=== PATIENT | female | born 1995 | race Caucasian/White ===

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

== ENCOUNTER 2017-03-02 11:00 | Emergency (ER) | payer OTHER ==
[2017-03-02 12:21] LABS: BILIRUBIN,URINE NEGATIVE (NEGATIVE); HCG UR QUAL NEGATIVE; UA CHARGE (STRIP ONLY) YES; UR CULTURE IF IND NOT INDICATED
--- NOTE | 2017-03-02 13:12 | ED Physician Documentation ---
PD HPI FEMALE - Stated complaint Stated Complaint: MHE - Chief complaint Chief Complaint: General - History obtained from History obtained from: Patient - History of Present Illness Timing - onset: Today Associated symptoms: Dysuria (mild). No: Pelvic pain Contributing factors: control. No: IUD OB-CIGAR PACKER History: G (0) Similar symptoms before: Has not had sx before - Additional information Additional information: The patient is a 22-year-old G0 female who presents with an abnormal feeling in her pelvic area. She describes it as "looks like a hairball stuck in my urethra. She reports mild dysuria. She denies abdominal pain, nausea or vomiting. Her last menstrual period was 5 weeks ago. She started control pills earlier this month. She denies history of similar symptoms in the past. Review of Systems Constitutional: denies: Fever Nose: denies: Congestion Throat: denies: Sore throat Respiratory: denies: Dyspnea, Cough GI: denies: Abdominal Pain, Nausea, Vomiting : reports: Dysuria (milod), LMP (5 weeks ago). denies: Frequency, Vaginal bleeding Skin: denies: Rash Musculoskeletal: denies: Back pain Neurologic: denies: Headache PD PAST MEDICAL HISTORY - Past Medical History Respiratory: None Endocrine/Autoimmune: None GI: None CIGAR PACKER: None - Past Surgical History Past Surgical History: Yes - Present Medications Home Medications: Ambulatory Orders Medication Instructions Recorded Confirmed No Known Home Medications [No 03/02/17 03/02/17 Known Home Medications] - Allergies Allergies/Adverse Reactions: Allergies Allergy/AdvReac Type Severity Reaction Status Date / Time Sulfa (Sulfonamide Allergy Hives Verified 03/02/17 11:10 Antibiotics) - Social History Does the pt smoke?: No Smoking Status: Never smoker PD ED PE NORMAL - Vitals Vital signs reviewed: Yes (borderline hypertension initially) - General General: Alert and oriented X 3, Well developed/nourished - HEENT HEENT: Atraumatic - Neck Neck: No adenopathy, No JVD - Cardiac Cardiac: RRR, No murmur - Respiratory Respiratory: No respiratory distress, Clear bilaterally - Abdomen Abdomen: Soft, Non tender - Female Female : Assistant Account Executive present - Back Back: No CVA TTP - Derm Derm: No rash - Extremities Extremities: No edema, No calf tenderness / cord - Neuro Neuro: Alert and oriented X 3, No motor deficit PD ED PE EXPANDED - Female Female : Normal external, Cultures sent, Assistant Account Executive present, Other (Matted hairy structure appears attached to the urethra. I tugged on it with ring forceps, and it was well adhered, causing the patient discomfort. It did not dislodge.). No: Vaginal Bleeding, Vaginal Discharge Results - Vitals Vitals: Oxygen O2 Source Room air - Labs Labs: Laboratory Tests 03/02/17 03/02/17 12:00 13:25 Urine Color YELLOW Urine Clarity CLEAR Urine pH 6.0 Ur Specific [place] 1.025 Urine Protein NEGATIVE Urine Glucose (UA) NEGATIVE Urine Ketones TRACE Urine Occult Blood NEGATIVE Urine Nitrite NEGATIVE Urine Bilirubin NEGATIVE Urine Urobilinogen 0.2 (NORMAL) Ur Leukocyte Esterase NEGATIVE Ur Microscopic Review NOT INDICATED Urine Culture Comments NOT INDICATED Urine HCG, Qual NEGATIVE C.trachomatis RNA (TMA) NOT DETECTED Chlamydia/GC Comment SEE NOTE N.gonorrhoeae RNA (TMA) NOT DETECTED PD MEDICAL DECISION MAKING - ED course Complexity details: reviewed results, considered differential, d/w patient ED course: The patient presented with a matted hairy structure attached to her urethra, which she humorously described as "dreadlocks." Attempt to dislodge the hairy structure from the urethra was unsuccessful, causing the patient significant discomfort. It is unclear to me whether this is an abnormal hairy growth, or hair from the pubic area that has become strongly adhered to the urethra. Urinalysis is negative. I suggested to the patient that this be evaluated by her vocal performer. I discussed with her and her female documentation analyst potentially worrisome signs or symptoms that should prompt return to the emergency department. Departure - Departure Disposition: 01 Home, Self Care Clinical Impression: Urethral foreign body Qualifiers: Encounter type: initial encounter Qualified Code(s): T19.0XXA - Foreign body in urethra, initial encounter Condition: Stable Instructions: ED Foreign Body Vaginal Follow-Up: Tristen Gonzalez MD [Primary Care Provider] - Comments: The abnormal "hairy" object attached to urethra is of uncertain source. There is no sign of urinary tract infection. Follow-up with your primary physician for referral to gynecology for further evaluation. Return to the emergency department if you develop increasing pain or otherwise worsening symptoms. Discharge Date/Time: 03/02/17 13:38
[2017-03-02 13:36] VITALS: BP 143/86
== END 2017-03-02 13:38 | disposition home or self-care (01) ==
LOC: ED 11:00
DX: T19.0XXA Foreign body in urethra, initial encounter (principal); X58.XXXA Exposure to other specified factors, initial encounter
CPT/HCPCS: 81001; 81003; 81025; 87086; 87491; 87591; 99283; 99284

== ENCOUNTER 2017-06-29 19:00 | Emergency (ER) | payer OTHER ==
[2017-06-29] MEDS ORDERED: FAMOTIDINE 20 MG TABLET PO STA (20:55)
[2017-06-29] MEDS ORDERED: MAG HYDROX/AL HYDROX/SIMETH 30 ML UDC PO STA (20:55)
[2017-06-29] MEDS ORDERED: LIDOCAINE VISCOUS 2% 15 ML UDC MM STA (20:55)
[2017-06-29 21:19] LABS: CLARITY,URINE SL. CLOUDY (CLEAR)
[2017-06-29 21:22] LABS: HCG UR QUAL NEGATIVE
[2017-06-29 21:26] LABS: BACTERIA,URINE Few /HPF (None Seen); RBC,URINE 0-5 /HPF (0-5); SQUAMOUS EPITHELIAL CELL,UR MANY Squamous (<= Few)
[2017-06-29] MEDS ORDERED: cephALEXin 250 MG CAPSULE PO STA (21:39)
--- NOTE | 2017-06-29 21:42 | ED Physician Documentation ---
History of Present Illness - Stated complaint Stated Complaint: CP/ABD PX - Chief complaint Chief Complaint: Cardiac - History obtained from History obtained from: Patient - History of Present Illness Timing: Today - Additonal information Additional information: Patient is a 22 year old female with no significant past medical history who is presenting to the emergency department for sub sternal chest pain and bilateral flank pain with lower abdominal symptoms. Patient states that the chest pain was burning in nature. Patient states that her urine was cloudy and had dysuria. Patient complains of mild nausea but no vomiting. Review of Systems Constitutional: denies: Fever, Chills Eyes: reports: Reviewed and negative Ears: reports: Reviewed and negative Nose: reports: Reviewed and negative Throat: denies: Sore throat Cardiac: reports: Chest pain / pressure. denies: Palpitations GI: reports: Abdominal Pain. denies: Nausea, Vomiting : reports: Dysuria, Frequency Skin: denies: Rash, Lesions Neurologic: denies: Generalized weakness, Focal weakness Psychiatric: denies: Anxiety Immunocompromised: denies: Immunocompromised PD PAST MEDICAL HISTORY - Past Medical History Past Medical History: No Respiratory: None Endocrine/Autoimmune: None GI: None CLEAT MAKER: None - Past Surgical History Past Surgical History: Yes - Present Medications Home Medications: Ambulatory Orders Medication Instructions Recorded Confirmed Cephalexin [Keflex] 500 mg PO BID #14 capsule 06/29/17 - Allergies Allergies/Adverse Reactions: Allergies Allergy/AdvReac Type Severity Reaction Status Date / Time Sulfa (Sulfonamide Allergy Hives Verified 03/02/17 11:10 Antibiotics) - Social History Does the pt smoke?: No Smoking Status: Never smoker Does the pt drink ETOH?: No Does the pt have substance abuse?: No PD ED PE NORMAL - Vitals Vital signs reviewed: Yes - General General: Alert and oriented X 3, No acute distress - HEENT HEENT: Atraumatic - Neck Neck: Supple, no meningeal sign - Cardiac Cardiac: RRR, No murmur - Respiratory Respiratory: No respiratory distress - Abdomen Abdomen: Soft, Non tender - Derm Derm: Normal color, Warm and dry - Extremities Extremities: No deformity - Neuro Neuro: Alert and oriented X 3, No motor deficit, Normal speech Eye Opening: Spontaneous Motor: Obeys Commands Verbal: Oriented GCS Score: 15 - Psych Psych: Normal mood Results - Vitals Vitals: Vital Signs - 24 hr 06/29/17 06/29/17 19:20 21:47 Temperature 36.7 C 36.8 C Heart Rate 94 71 Respiratory 20 12 Rate Blood Pressure 143/100 H 129/81 H O2 Saturation 100 97 Oxygen O2 Source Room air - EKG (time done) 1906 Rate: Rate (enter#) (88) Rhythm: NSR [place]: Normal Intervals: Normal SD QRS: Normal Ischemia: Normal ST segments Compare to prior EKG: Old EKG unavailable - Labs Labs: Laboratory Tests 06/29/17 06/29/17 21:00 21:07 Troponin I < 0.04 Urine Color DK. ORANGE Urine Clarity SL. CLOUDY Urine pH Not Reportable Ur Specific [place] Not Reportable Urine Protein Not Reportable Urine Glucose (UA) Not Reportable Urine Ketones Not Reportable Urine Occult Blood Not Reportable Urine Nitrite Not Reportable Urine Bilirubin Not Reportable Urine Urobilinogen Not Reportable Ur Leukocyte Esterase SCRAP HANDLER Urine RBC 0-5 Urine WBC >25 H Ur Squamous Epith Cells MANY Squamous H Urine Bacteria Few Ur Microscopic Review INDICATED Urine Culture Comments Not Reportable Urine HCG, Qual NEGATIVE PD MEDICAL DECISION MAKING - ED course Complexity details: reviewed old records, reviewed results, re-evaluated patient , considered differential, d/w patient ED course: Patient was seen and examined at bedside. ekg was performed. troponin was drawn. urine was collected. Patient was treated with pecid, maalox and viscous lidocaine. patient's chest pain resolved and troponin and ekg was normal. Patient was found to have a uti and was treated with keflex. Patient required no further work up and was stable for discharge with outpatient follow up. Departure - Departure Disposition: 01 Home, Self Care Clinical Impression: GERD (gastroesophageal reflux disease), Urinary tract infection Condition: Good Instructions: ED UTI Cystitis Female Follow-Up: primary,care provider [Other] - As Needed Prescriptions: Cephalexin [Keflex] 500 mg PO BID #14 capsule Comments: Your diagnostics for your chest were within normal limits and those symptoms are likely secondary to GERD. Your stomach pain is being caused by a urinary tract infection. You had your first dose of antibiotics today and will take it twice a day for a week. You should follow up with your doctor if your symptoms don't improve. You may return to the emergency department at any time for new, worsening or uncontrollable symptoms. Discharge Date/Time: 06/29/17 21:48
[2017-06-29 21:48] VITALS: BP 129/81
== END 2017-06-29 21:48 | disposition home or self-care (01) ==
LOC: ED 19:00
DX: K21.9 Gastro-esophageal reflux disease without esophagitis (principal); N39.0 Urinary tract infection, site not specified
CPT/HCPCS: 36415; 81001; 81025; 84484; 93005; 99283; 99284; A9270; 81003; 87086

== ENCOUNTER 2017-09-06 19:36 | Emergency (ER) | payer OTHER ==
[2017-09-06 20:05] LABS: BASOPHILS % (AUTO) 0.3 %; EOSINOPHILS # (AUTO) 0.1 10^3/uL (0.0-0.7); HGB - HEMOGLOBIN 13.1 g/dL (12.0-16.0); LYMPHOCYTES # (AUTO) 3.4 10^3/uL (1.5-3.5); LYMPHOCYTES % (AUTO) 29.5 %; MEAN CORPUSCULAR HEMOGLOBIN 29.2 pg (27.0-31.0); MEAN CORPUSCULAR HGB CONC 32.9 g/dL (32.0-36.0); MEAN CORPUSCULAR VOLUME 88.8 fL (81.0-99.0); MEAN PLATELET VOLUME 7.2 fL (7.9-10.8); MONOCYTES # (AUTO) 0.7 10^3/uL (0.0-1.0); MONOCYTES % (AUTO) 5.7 %; NEUTROPHILS # (AUTO) 7.2 10^3/uL (1.5-6.6); NEUTROPHILS % (AUTO) 63.5 %; PLT - PLATELET COUNT 295 10^3/uL (130-450); RED BLOOD COUNT 4.48 10^6/uL (4.20-5.40); WHITE BLOOD COUNT 11.4 x10^3/uL (4.8-10.8)
[2017-09-06 20:18] LABS: ALBUMIN 3.9 g/dL (3.2-5.5); ALBUMIN/GLOBULIN RATIO 1.1 (1.0-2.2); BILIRUBIN,TOTAL 0.3 mg/dL (0.2-1.0); CREATININE 0.7 mg/dL (0.4-1.0); TOTAL PROTEIN 7.3 g/dL (6.7-8.2)
--- NOTE | 2017-09-06 20:59 | ED Physician Documentation ---
PD HPI FEMALE - Stated complaint Stated Complaint: 5 WKS PREG/BLEEDING/CRAMPING - Chief complaint Chief Complaint: Abd Pain - History obtained from History obtained from: Patient, Family - History of Present Illness Timing - onset: Today Contributing factors: OB-DISPATCHER RELAY History: G (2), P (0), Miscarriage(s) Similar symptoms before: Work up / diagnostics Recently seen: Clinic - Additional information Additional information: Patient is a 22 year old about 5 weeks by dates who is presenting to the emergency department for vaginal bleeding. patient states that she was in the ED about a week ago with similar symptoms. patient had been following up with her doctor and her last betahcg two days ago was about 5000. patient states that she had bleeding and cramping today so she came to the emergency department for evaluation. Review of Systems Ten Systems: 10 systems reviewed and negative GI: reports: Abdominal Pain. denies: Nausea, Vomiting : reports: Vaginal bleeding. denies: Dysuria, Frequency, Discharge PD PAST MEDICAL HISTORY - Past Medical History Respiratory: None Endocrine/Autoimmune: None GI: None DISPATCHER RELAY: None - Past Surgical History Past Surgical History: Yes - Present Medications Home Medications: Ambulatory Orders Medication Instructions Recorded Confirmed Vitamin [Trinatal Rx 1] 1 each PO DAILY 09/06/17 09/06/17 - Allergies Allergies/Adverse Reactions: Allergies Allergy/AdvReac Type Severity Reaction Status Date / Time Sulfa (Sulfonamide Allergy Hives Verified 09/06/17 19:43 Antibiotics) - Social History Does the pt smoke?: No Smoking Status: Never smoker Does the pt drink ETOH?: No Does the pt have substance abuse?: No PD ED PE NORMAL - Vitals Vital signs reviewed: Yes - General General: Alert and oriented X 3 - HEENT HEENT: Atraumatic - Cardiac Cardiac: RRR - Respiratory Respiratory: No respiratory distress - Abdomen Abdomen: Soft - Female Female : Deferred - Derm Derm: Normal color, No rash - Extremities Extremities: No deformity - Neuro Neuro: Alert and oriented X 3 Eye Opening: Spontaneous Motor: Obeys Commands Verbal: Oriented GCS Score: 15 Results - Vitals Vitals: Vital Signs - 24 hr 09/06/17 09/06/17 19:40 22:42 Temperature 36.9 C 37.2 C Heart Rate 95 85 Respiratory 16 16 Rate Blood Pressure 142/86 H 131/87 H O2 Saturation 100 98 Oxygen O2 Source Room air - Labs Labs: Laboratory Tests 09/06/17 09/06/17 09/06/17 19:58 19:58 19:58 WBC 11.4 H RBC 4.48 Hgb 13.1 Hct 39.8 MCV 88.8 MCH 29.2 MCHC 32.9 RDW 13.0 Plt Count 295 MPV 7.2 L Neut # (Auto) 7.2 H Lymph # (Auto) 3.4 [place] # (Auto) 0.7 Eos # (Auto) 0.1 Baso # (Auto) 0.0 Absolute Nucleated RBC 0.00 Nucleated RBC % 0.0 Sodium 134 L Potassium 3.2 L Chloride 102 Carbon Dioxide 26 Anion Gap 6.0 BUN 9 Creatinine 0.7 Estimated GFR (MDRD) 107 Glucose 106 H Calcium 9.0 Total Bilirubin 0.3 AST 21 ALT 26 Alkaline Phosphatase 54 Total Protein 7.3 Albumin 3.9 Globulin 3.4 Albumin/Globulin Ratio 1.1 Lipase 36 HCG, Quant Urine Color Urine Clarity Urine pH Ur Specific [place] Urine Protein Urine Glucose (UA) Urine Ketones Urine Occult Blood Urine Nitrite Urine Bilirubin Urine Urobilinogen Ur Leukocyte Esterase Urine RBC Urine WBC Ur Squamous Epith Cells Urine Bacteria Ur Microscopic Review Urine Culture Comments Blood Type B POSITIVE 09/06/17 09/06/17 19:58 20:55 WBC RBC Hgb Hct MCV MCH MCHC RDW Plt Count MPV Neut # (Auto) Lymph # (Auto) [place] # (Auto) Eos # (Auto) Baso # (Auto) Absolute Nucleated RBC Nucleated RBC % Sodium Potassium Chloride Carbon Dioxide Anion Gap BUN Creatinine Estimated GFR (MDRD) Glucose Calcium Total Bilirubin AST ALT Alkaline Phosphatase Total Protein Albumin Globulin Albumin/Globulin Ratio Lipase HCG, Quant 9547.00 Urine Color ORANGE Urine Clarity CLEAR Urine pH 5.5 Ur Specific [place] 1.015 Urine Protein TRACE Urine Glucose (UA) NEGATIVE Urine Ketones NEGATIVE Urine Occult Blood MODERATE H Urine Nitrite POSITIVE H Urine Bilirubin NEGATIVE Urine Urobilinogen 1 (NORMAL) Ur Leukocyte Esterase NEGATIVE Urine RBC None Seen Urine WBC 0-3 Ur Squamous Epith Cells RARE Squamous Urine Bacteria None Seen Ur Microscopic Review INDICATED Urine Culture Comments INDICATED Blood Type - Rads (name of study) pelvic ultrasound Radiology: Final report received (intrauterine about 5 weeks, no pole present at this time) PD MEDICAL DECISION MAKING - ED course Complexity details: reviewed old records, reviewed results, re-evaluated patient , considered differential, d/w patient, d/w family ED course: Patient was seen and examined at bedside. Iv access was gained and labs were drawn. imaging was ordered. when patient returned from imaging the results were reviewed. patient had an intrauterine . patient's beta had been increasing appropriately. patient was rh positive. Patient had no active bleeding. No further inpatient work up was necessary at this time and patient was stable for discharge with outpatient follow up. - Sepsis Event Vital Signs: Vital Signs - 24 hr 09/06/17 09/06/17 19:40 22:42 Temperature 36.9 C 37.2 C Heart Rate 95 85 Respiratory 16 16 Rate Blood Pressure 142/86 H 131/87 H O2 Saturation 100 98 Oxygen O2 Source Room air Departure - Departure Disposition: 01 Home, Self Care Clinical Impression: Threatened in early Condition: Good Instructions: ED Miscarriage Poss Follow-Up: KOTA JUDD DO [Primary Care Provider] - Tomorrow Comments: Your diagnostics today were within normal limits. That being said it is too early to tell if the will come to fruition. You will need to continue to work with your OB to monitor you hcg results and get a repeat ultrasound. You should return to the emergency department for going through a pad an hour or more, near syncope, new worsening or uncontrollable symptoms. Discharge Date/Time: 09/06/17 23:06
[2017-09-06 21:12] LABS: BILIRUBIN,URINE NEGATIVE (NEGATIVE); GLUCOSE, URINE (UA) NEGATIVE (NEGATIVE); KETONES,URINE (UA) NEGATIVE (NEGATIVE); LEUKOCYTE ESTERASE, URINE NEGATIVE (NEGATIVE); NITRITE,URINE POSITIVE (NEGATIVE); OCCULT BLOOD,URINE MODERATE (NEGATIVE); PH,URINE 5.5 PH (5.0-7.5); PROTEIN,URINE TRACE mg/dL (NEGATIVE); UROBILINOGEN,URINE 1 (NORMAL) E.U./dL (NORMAL)
[2017-09-06 21:20] LABS: CLARITY,URINE CLEAR (CLEAR)
[2017-09-06 21:23] LABS: BACTERIA,URINE None Seen /HPF (None Seen); RBC,URINE None Seen /HPF (0-5); SQUAMOUS EPITHELIAL CELL,UR RARE Squamous (<= Few)
[2017-09-06 22:43] VITALS: BP 131/87
--- NOTE | 2017-09-06 22:58 | Ultrasound Report ---
Procedure Date: 09/06/2017 Accession Number: [id number] / [id number] Procedure: US - OB First Trimester CPT Code: FULL RESULT: EXAM: FIRST TRIMESTER OBSTETRIC ULTRASOUND (Less than 11 weeks) EXAM DATE: 09/06/2017 10:28 PM. CLINICAL HISTORY: Preg vag bleeding. LMP: 07/31/17. COMPARISONS: None. TECHNIQUE: Transabdominal and transvaginal ultrasound examination with static image documentation. ASSESSMENT: Gestational Sac: Single intrauterine. Mean gestational sac diameter: 8.8 mm = 4 weeks 6 days. No embryo visualized. Amniotic fluid: Not accurately assessed at this gestational age. Early placenta: Not visible at this gestational age. Other: No perigestational fluid collection demonstrated. MATERNAL STRUCTURES: Uterus: Anteverted. Unremarkable. Cervix: Closed. Bilateral ovaries are unremarkable. Free Fluid: None. Other: None. IMPRESSION: Single intrauterine gestational sac identified. No embryo, likely due to early dates. Continued close follow-up to establish viability is recommended. RADIA
--- NOTE | 2017-09-07 15:03 | Ultrasound Report ---
Procedure Date: 09/06/2017 Accession Number: [id number] / [id number] Procedure: US - OB Transvaginal CPT Code: FULL RESULT: FINDINGS: IMPRESSION: See results from 09/06/2017 of the OB 1st Trimester - accession # [id number].
== END 2017-09-06 23:06 | disposition home or self-care (01) ==
LOC: ED 19:36
DX: O20.0 Threatened abortion (principal); Z3A.01 Less than 8 weeks gestation of pregnancy
CPT/HCPCS: 36415; 76801; 76817; 80053; 81001; 81003; 83690; 84702; 85025; 86900; 86901; 87086; 99283

== ENCOUNTER 2017-10-14 10:19 | Outpatient (CLI) | payer OTHER ==
--- NOTE | 2017-10-14 16:57 | Ultrasound Report ---
Procedure Date: 10/14/2017 Accession Number: [id number] / [id number] Procedure: US - OB First Trimester CPT Code: FULL RESULT: EXAM: FIRST TRIMESTER OBSTETRIC ULTRASOUND (less than 11 weeks). EXAM DATE: 10/14/2017 11:28 AM. CLINICAL HISTORY: Early , spotting. LMP: 07/31/2017. COMPARISONS: 09/06/2017. TECHNIQUE: Transabdominal and transvaginal ultrasound examination with static image documentation. CLINICAL DATES: EGA 10 weeks 5 days with MARSHALL 05/07/2018 based on 07/31/2017. ASSESSMENT: Gestational Sac: Single intrauterine. Mean gestational sac diameter: 47 mm = 10 weeks 2 days plus or minus 5 days. Embryo: CRL (crown-rump length) 40 mm = 10 weeks 6 days plus or minus 5 days. Cardiac activity: 161 beats per minute. Yolk sac: 4.3 mm. Amniotic fluid: Not accurately assessed at this gestational age. Early placenta: Not visible at this gestational age. Other: No perigestational fluid collection demonstrated. MATERNAL STRUCTURES: Uterus: Anteverted. Unremarkable. Cervix: Closed. Right Ovary/Adnexa: Unremarkable. The ovary measures 2.7 x 1.1 x 1.5 cm, volume 2 cc. Left Ovary/Adnexa: Unremarkable. The ovary measures 3.4 x 1.3 x 1.6 cm, volume 4 cc. Free Fluid: None. Other: None. IMPRESSION: 1. Single viable intrauterine at EGA 10 weeks 5 days with MARSHALL 05/07/2018 based on LMP, which is concordant with ultrasound. RADIA
== END 2017-10-14 10:20 | disposition home or self-care (01) ==
LOC: DI 10:19
PROVIDERS: ATTEND Family Medicine
DX: O20.9 Hemorrhage in early pregnancy, unspecified (principal); Z3A.10 10 weeks gestation of pregnancy
CPT/HCPCS: 76801; 76817

== ENCOUNTER 2017-10-16 16:39 | Outpatient (CLI) | payer OTHER ==
[2017-10-16 17:08] LABS: BASOPHILS % (AUTO) 0.2 %; EOSINOPHILS # (AUTO) 0.1 10^3/uL (0.0-0.7); EOSINOPHILS % (AUTO) 0.8 %; HGB - HEMOGLOBIN 12.8 g/dL (12.0-16.0); LYMPHOCYTES # (AUTO) 2.6 10^3/uL (1.5-3.5); LYMPHOCYTES % (AUTO) 28.6 %; MEAN CORPUSCULAR HEMOGLOBIN 29.5 pg (27.0-31.0); MEAN CORPUSCULAR HGB CONC 33.4 g/dL (32.0-36.0); MEAN CORPUSCULAR VOLUME 88.2 fL (81.0-99.0); MEAN PLATELET VOLUME 7.4 fL (7.9-10.8); MONOCYTES # (AUTO) 0.4 10^3/uL (0.0-1.0); MONOCYTES % (AUTO) 4.9 %; NEUTROPHILS % (AUTO) 65.5 %; PLT - PLATELET COUNT 274 10^3/uL (130-450); RED BLOOD COUNT 4.36 10^6/uL (4.20-5.40); RED CELL DISTRIBUTION WIDTH 12.3 % (12.0-15.0); WHITE BLOOD COUNT 9.2 x10^3/uL (4.8-10.8)
[2017-10-16 17:28] LABS: BILIRUBIN,URINE NEGATIVE (NEGATIVE); GLUCOSE, URINE (UA) NEGATIVE (NEGATIVE); KETONES,URINE (UA) NEGATIVE (NEGATIVE); LEUKOCYTE ESTERASE, URINE SMALL (NEGATIVE); NITRITE,URINE NEGATIVE (NEGATIVE); OCCULT BLOOD,URINE TRACE-LYSE (NEGATIVE); PH,URINE 7.5 PH (5.0-7.5); PROTEIN,URINE NEGATIVE (NEGATIVE); UROBILINOGEN,URINE 0.2 (NORMAL) E.U./dL (NORMAL)
[2017-10-16 17:36] LABS: CLARITY,URINE HAZY (CLEAR)
[2017-10-16 18:14] LABS: RBC,URINE 0-5 /HPF (0-5)
[2017-10-16 18:15] LABS: BACTERIA,URINE Moderate /HPF (None Seen); SQUAMOUS EPITHELIAL CELL,UR FEW Squamous (<= Few)
[2017-10-17 13:22] LABS: HEPATITIS B SURFACE ANTIGEN NON-REACTIVE (NON-REACTIVE); HEPATITIS C ANTIBODY NON-REACTIVE (NON-REACTIVE)
[2017-10-17 14:12] LABS: HIV AG/AB 4TH GEN NON-REACTIVE (NON-REACTIVE)
== END 2017-10-16 16:40 | disposition home or self-care (01) ==
LOC: LAB 16:39
PROVIDERS: ATTEND Nurse Practitioner Obstetrics & Gynecology
DX: Z36.9 Encounter for antenatal screening, unspecified (principal)
CPT/HCPCS: 36415; 81001; 81599; 85025; 86592; 86762; 86803; 86850; 86900; 86901; 87340; 87389

== ENCOUNTER 2017-10-17 08:00 | Outpatient (CLI) | payer OTHER ==
[2017-10-17 14:47] LABS: AMPHETAMINE SCREEN,URINE NEGATIVE (NEGATIVE); BENZODIAZEPINES SCREEN, URINE NEGATIVE (NEGATIVE); COCAINE SCREEN URINE NEGATIVE (NEGATIVE); METHADONE SCREEN, URINE NEGATIVE (NEGATIVE); METHAMPHETAMINES SCREEN, URINE NEGATIVE (NEGATIVE); MUDS CUTOFF CONCENTRATIONS CUTOFF CONC BELOW:; OPIATE SCREEN, URINE NEGATIVE (NEGATIVE); OXYCODONE SCREEN, URINE NEGATIVE (NEGATIVE); PROPOXYPHENE SCREEN, URINE NEGATIVE (NEGATIVE); TRICYCLIC ANTIDEPRESSANT,URINE NEGATIVE (NEGATIVE)
== END 2017-10-17 08:01 | disposition home or self-care (01) ==
LOC: LAB.R 08:00
PROVIDERS: ATTEND Nurse Practitioner Obstetrics & Gynecology
DX: Z11.3 Encounter for screening for infections with a predominantly sexual mode of transmission (principal); Z36.9 Encounter for antenatal screening, unspecified
CPT/HCPCS: 80306; 87491; 87591

== ENCOUNTER 2017-12-11 07:27 | Outpatient (CLI) | payer OTHER ==
--- NOTE | 2017-12-11 15:09 | Ultrasound Report ---
Reason: ENCTR FOR SCREENING Procedure Date: 12/11/2017 Accession Number: [id number] / [id number] Procedure: US - OB Detailed Eval CPT Code: FULL RESULT: EXAM: COMPLETE OBSTETRICAL ULTRASOUND EXAM DATE: 12/11/2017 08:31 AM. CLINICAL HISTORY: anatomic survey. COMPARISON: 10/14/2017. TECHNIQUE: Real-time sonographic evaluation of the fetus performed by the property accountant. Multiple metals sales representative static images were saved for review. Additional transvaginal imaging to more accurately evaluate cervical length/placental position/etc. DATING: Established EGA 19 weeks/0 days with MARSHALL 05/07/2018 based on LMP of 07/31/2017. EGA 18 weeks/6 days with MARSHALL 05/06/2018 based on first ultrasound 10/14/2017. EGA 19 weeks/3 days with MARSHALL 05/04/2018 based on the current ultrasound. GENERAL EVALUATION Piña . Cardiac activity: 157 bpm. movement: Visualized. Presentation: Cephalic. Placenta: Posterior position. No evidence for previa. Umbilical cord: 3 vessel cord. Central placental cord origin. Amniotic fluid: Subjectively normal. MVP 4.0 cm. BIOMETRY Bi-Parietal Diameter (BPD): 4.5 cm, 19 weeks/4 days Head Circumference (HC): 16.8 cm, 19 weeks/3 days Abdominal Circumference (AC): 13.9 cm, 19 weeks/2 days Femur Length (FL): 3.1 cm, 19 weeks/4 days Estimated Weight: 292 gm, 70th percentile for weeks/days. ANATOMY The intracranial structures, profile, face/nose/lips, spine, 4 chamber heart and outflow tracts, stomach, abdominal wall and cord insertion, diaphragm, kidneys, bladder, and extremities were visualized and demonstrate no abnormality. Nuchal fold 3.3 mm, normal. MATERNAL STRUCTURES Uterus: Unremarkable. Cervix: Long and closed. Transabdominal length 5.2 cm. Right ovary/adnexa: Unremarkable. Left ovary/adnexa: Unremarkable. Free fluid: None. IMPRESSION: 1. Piña live intrauterine with gestational age 18 weeks 6 days based on initial ultrasound. 2. Estimated weight is within expected limits for assigned dating. 3. Normal anatomic survey. No anatomic abnormalities are detected at this time. RADIA
== END 2017-12-11 07:28 | disposition home or self-care (01) ==
LOC: DI 07:27
PROVIDERS: ATTEND Registered Nurse
DX: Z36.9 Encounter for antenatal screening, unspecified (principal); Z3A.18 18 weeks gestation of pregnancy
CPT/HCPCS: 76811

== ENCOUNTER 2017-12-12 08:00 | Outpatient (CLI) | payer OTHER | END 2017-12-12 08:01 | disposition home or self-care (01) | LOC: LAB 08:00 | PROVIDERS: ATTEND Registered Nurse | DX: Z87.448 Personal history of other diseases of urinary system (principal) | CPT/HCPCS: 87086 ==

== ENCOUNTER 2017-12-16 03:18 | Outpatient (CLI) | payer OTHER ==
[2017-12-16 03:30] VITALS: BP 124/76
[2017-12-16 04:04] LABS: RUPTURE OF MEMBRANES PLUS NEGATIVE (NEGATIVE)
== END 2017-12-16 04:25 | disposition home or self-care (01) ==
LOC: WFO 03:18 → FBP 03:20 → WFO 04:25
PROVIDERS: ATTEND Registered Nurse
DX: O47.1 False labor at or after 37 completed weeks of gestation (principal); Z3A.20 20 weeks gestation of pregnancy
CPT/HCPCS: 84112; 99213

== ENCOUNTER 2018-01-18 21:14 | Outpatient (CLI) | payer OTHER ==
[2018-01-18 21:49] VITALS: BP 114/75
[2018-01-18] MEDS ORDERED: ACETAMINOPHEN 500 MG TABLET PO ONE (22:22)
[2018-01-18] MEDS ORDERED: ONDANSETRON ODT 4 MG TABLET TL SCH (22:30)
== END 2018-01-18 23:10 | disposition home or self-care (01) ==
LOC: WFO 21:14 → FBP 21:16 → WFO 23:10
PROVIDERS: ATTEND Nurse Practitioner Obstetrics & Gynecology
DX: O21.2 Late vomiting of pregnancy (principal); Z3A.24 24 weeks gestation of pregnancy
CPT/HCPCS: 99212; A9270; Q0162

== ENCOUNTER 2018-02-07 08:15 | Outpatient (CLI) | payer OTHER ==
[2018-02-07 09:30] LABS: MEAN CORPUSCULAR HEMOGLOBIN 29.3 pg (27.0-31.0); MEAN CORPUSCULAR HGB CONC 34.6 g/dL (32.0-36.0); MEAN CORPUSCULAR VOLUME 84.5 fL (81.0-99.0); RED BLOOD COUNT 4.09 10^6/uL (4.20-5.40); RED CELL DISTRIBUTION WIDTH 12.4 % (12.0-15.0); WHITE BLOOD COUNT 10.3 x10^3/uL (4.8-10.8)
== END 2018-02-07 08:16 | disposition home or self-care (01) ==
LOC: LAB 08:15
PROVIDERS: ATTEND Registered Nurse
DX: Z36.9 Encounter for antenatal screening, unspecified (principal)
CPT/HCPCS: 36415; 82950; 85027; 86850

== ENCOUNTER 2018-02-09 19:07 | Outpatient (CLI) | payer OTHER ==
[2018-02-09] MEDS ORDERED: ACETAMINOPHEN 500 MG TABLET PO SCH (20:00)
[2018-02-09] MEDS ORDERED: LACTATED RINGERS 1,000 ML IV SCH (20:01)
[2018-02-09 20:21] LABS: BASOPHILS % (AUTO) 0.2 %; EOSINOPHILS # (AUTO) 0.1 10^3/uL (0.0-0.7); EOSINOPHILS % (AUTO) 1.2 %; HGB - HEMOGLOBIN 11.2 g/dL (12.0-16.0); LYMPHOCYTES # (AUTO) 2.3 10^3/uL (1.5-3.5); LYMPHOCYTES % (AUTO) 23.4 %; MEAN CORPUSCULAR HEMOGLOBIN 28.8 pg (27.0-31.0); MEAN CORPUSCULAR HGB CONC 33.4 g/dL (32.0-36.0); MEAN CORPUSCULAR VOLUME 86.3 fL (81.0-99.0); MONOCYTES # (AUTO) 0.8 10^3/uL (0.0-1.0); MONOCYTES % (AUTO) 7.7 %; NEUTROPHILS # (AUTO) 6.7 10^3/uL (1.5-6.6); NEUTROPHILS % (AUTO) 67.5 %; PLT - PLATELET COUNT 287 10^3/uL (130-450); RED BLOOD COUNT 3.89 10^6/uL (4.20-5.40); RED CELL DISTRIBUTION WIDTH 12.5 % (12.0-15.0); WHITE BLOOD COUNT 9.9 x10^3/uL (4.8-10.8)
[2018-02-09 20:21] LABS: BILIRUBIN,URINE NEGATIVE (NEGATIVE); GLUCOSE, URINE (UA) NEGATIVE (NEGATIVE); KETONES,URINE (UA) NEGATIVE (NEGATIVE); LEUKOCYTE ESTERASE, URINE TRACE (NEGATIVE); NITRITE,URINE NEGATIVE (NEGATIVE); OCCULT BLOOD,URINE NEGATIVE (NEGATIVE); PROTEIN,URINE NEGATIVE (NEGATIVE); UROBILINOGEN,URINE 0.2 (NORMAL) E.U./dL (NORMAL)
[2018-02-09] MEDS ORDERED: SODIUM CHLORIDE FLUSH 0.9% 10 ML SYRINGE ONE (20:30)
[2018-02-09 20:35] LABS: CREATININE 0.7 mg/dL (0.4-1.0)
[2018-02-09 20:36] LABS: CREATININE,URINE 76.2 mg/dL; PROTEIN/CREATININE RATIO,URINE 0.2 (<=0.2)
[2018-02-09 20:37] LABS: AMORPHOUS SEDIMENT,UR Moderate /LPF; BACTERIA,URINE Rare /HPF (None Seen); CLARITY,URINE CLOUDY (CLEAR); RBC,URINE 0-5 /HPF (0-5); SQUAMOUS EPITHELIAL CELL,UR FEW Squamous (<= Few)
[2018-02-09 20:38] LABS: URIC ACID 3.9 mg/dL (2.6-7.2)
[2018-02-09 23:41] VITALS: BP 125/80
== END 2018-02-09 23:00 | disposition home or self-care (01) ==
LOC: WFO 19:07 → FBP 19:08 → WFO 23:00
PROVIDERS: ATTEND Registered Nurse
DX: O99.89 Other specified diseases and conditions complicating pregnancy, childbirth and the puerperium (principal); R51 Headache; Z3A.27 27 weeks gestation of pregnancy
CPT/HCPCS: 36415; 81001; 82565; 82570; 83615; 84156; 84450; 84550; 85025; 85384; 87086; 99212; A9270; J7120

== ENCOUNTER 2018-02-10 14:58 | Outpatient (CLI) | payer OTHER ==
[2018-02-10 15:10] VITALS: BP 130/75
== END 2018-02-10 15:15 | disposition home or self-care (01) ==
LOC: WFO 14:58 → FBP 14:58 → WFO 15:15
PROVIDERS: ATTEND Registered Nurse
DX: Z34.02 Encounter for supervision of normal first pregnancy, second trimester (principal)

== ENCOUNTER 2018-02-20 08:18 | Outpatient (CLI) | payer OTHER | END 2018-02-20 08:19 | disposition home or self-care (01) | LOC: LAB 08:18 | PROVIDERS: ATTEND Registered Nurse | DX: O99.810 Abnormal glucose complicating pregnancy (principal) | CPT/HCPCS: 36415; 82951; 82952 ==

== ENCOUNTER 2018-02-21 08:00 | Outpatient (CLI) | payer OTHER | END 2018-02-21 23:59 | LOC: LAB.R 08:00 | PROVIDERS: ATTEND Registered Nurse | DX: R30.0 Dysuria (principal) | CPT/HCPCS: 87086 ==

== ENCOUNTER 2018-03-02 08:00 | Outpatient (CLI) | payer OTHER | END 2018-03-02 23:59 | LOC: LAB.R 08:00 | PROVIDERS: ATTEND Registered Nurse | DX: N76.0 Acute vaginitis (principal) | CPT/HCPCS: 87491; 87591 ==

== ENCOUNTER 2018-03-07 10:55 | Outpatient (CLI) | payer OTHER ==
[2018-03-07 12:36] LABS: BILIRUBIN,URINE NEGATIVE (NEGATIVE); GLUCOSE, URINE (UA) NEGATIVE (NEGATIVE); KETONES,URINE (UA) NEGATIVE (NEGATIVE); LEUKOCYTE ESTERASE, URINE NEGATIVE (NEGATIVE); NITRITE,URINE NEGATIVE (NEGATIVE); OCCULT BLOOD,URINE NEGATIVE (NEGATIVE); PROTEIN,URINE NEGATIVE (NEGATIVE); UROBILINOGEN,URINE 0.2 (NORMAL) E.U./dL (NORMAL)
[2018-03-07 12:41] LABS: CLARITY,URINE CLEAR (CLEAR)
[2018-03-07 12:57] LABS: BACTERIA,URINE None Seen /HPF (None Seen); RBC,URINE None Seen /HPF (0-5); SQUAMOUS EPITHELIAL CELL,UR NONE SEEN (<= Few)
[2018-03-07 12:58] LABS: BASOPHILS % (AUTO) 0.2 %; EOSINOPHILS # (AUTO) 0.1 10^3/uL (0.0-0.7); EOSINOPHILS % (AUTO) 1.1 %; HGB - HEMOGLOBIN 11.4 g/dL (12.0-16.0); LYMPHOCYTES # (AUTO) 3.5 10^3/uL (1.5-3.5); LYMPHOCYTES % (AUTO) 30.8 %; MEAN CORPUSCULAR HEMOGLOBIN 28.2 pg (27.0-31.0); MEAN CORPUSCULAR VOLUME 82.9 fL (81.0-99.0); MEAN PLATELET VOLUME 7.9 fL (7.9-10.8); MONOCYTES # (AUTO) 0.8 10^3/uL (0.0-1.0); MONOCYTES % (AUTO) 7.4 %; NEUTROPHILS # (AUTO) 6.9 10^3/uL (1.5-6.6); NEUTROPHILS % (AUTO) 60.5 %; PLT - PLATELET COUNT 281 10^3/uL (130-450); RED BLOOD COUNT 4.03 10^6/uL (4.20-5.40); RED CELL DISTRIBUTION WIDTH 12.5 % (12.0-15.0); WHITE BLOOD COUNT 11.4 x10^3/uL (4.8-10.8)
[2018-03-07 13:00] LABS: CREATININE,URINE 30.1 mg/dL; TOTAL PROTEIN,URINE TIMED < 6 mg/dL
[2018-03-07 14:52] VITALS: BP 129/67
[2018-03-07] MEDS ORDERED: ACETAMINOPHEN 500 MG TABLET PO ONE (15:00)
== END 2018-03-07 15:20 | disposition home or self-care (01) ==
LOC: WFO 10:55 → FBP 10:58 → WFO 15:20
PROVIDERS: ATTEND Nurse Practitioner Obstetrics & Gynecology
DX: O36.8130 Decreased fetal movements, third trimester, not applicable or unspecified (principal); O99.89 Other specified diseases and conditions complicating pregnancy, childbirth and the puerperium; R07.81 Pleurodynia; Z3A.31 31 weeks gestation of pregnancy
CPT/HCPCS: 36415; 81001; 82570; 83615; 84156; 84450; 84550; 85025; 99214; A9270; 87086

== ENCOUNTER 2018-04-03 08:00 | Outpatient (CLI) | payer OTHER | END 2018-04-03 23:59 | disposition home or self-care (01) | LOC: LAB.R 08:00 | PROVIDERS: ATTEND Registered Nurse | DX: Z33.1 Pregnant state, incidental (principal) | CPT/HCPCS: 87491; 87591; 87797 ==

== ENCOUNTER 2018-04-03 08:55 | Outpatient (CLI) | payer OTHER ==
--- NOTE | 2018-04-03 13:19 | Ultrasound Report ---
Reason: UTERINE SIZE DATE DISCREPANCY,ANTEPARTUM,UNSPECIFI Procedure Date: 04/03/2018 Accession Number: [id number] / [id number] Procedure: US - OB F/U or Repeat CPT Code: FULL RESULT: EXAM: FOLLOW-UP OBSTETRICAL ULTRASOUND EXAM DATE: 04/03/2018 09:12 AM. CLINICAL HISTORY: Uterine size date discrepancy, antepartum, unspecified. COMPARISON: 10/14/2017. TECHNIQUE: Real-time sonographic evaluation of the fetus performed by the sales marketing manager. Multiple professional healthcare representative static images were saved for review. DATING: Established EGA 35 weeks 1 day with MARSHALL 05/07/2018 based on last menstrual period/obstetric provider. EGA 35 weeks 0 days with MARSHALL 05/06/2018 based on first ultrasound. EGA 36 weeks 3 days with MARSHALL 04/28/2018 based on the current ultrasound. GENERAL EVALUATION Piña . Cardiac activity: 135 bpm. movement: Visualized. Presentation: Cephalic. Placenta: Posterior position. Amniotic fluid: Normal. KELY 15.3 cm. MVP 6.3 cm. BIOMETRY Bi-Parietal Diameter (BPD): 8.9 cm, 36 weeks 3 days Head Circumference (HC): 32.5 cm, 36 weeks 6 days Abdominal Circumference (AC): 32.4 cm, 36 weeks 3 days Femur Length (FL): 6.9 cm, 35 weeks 5 days Estimated Weight: 2894 grams, 78th percentile for 35 weeks 1 day. IMPRESSION: 1. Piña live intrauterine with gestational age 35 weeks 1 day based on last menstrual period. 2. Estimated weight is within expected limits for assigned dating. NEREIDA
[2018-04-04 14:26] LABS: HIV AG/AB 4TH GEN NON-REACTIVE (NON-REACTIVE)
[2018-04-05 11:42] LABS: HSV 1 IGG TYPE SPECIFIC AB <0.90 index; HSV 2 IGG TYPE SPECIFIC AB <0.90 index
[2018-04-05 19:21] LABS: HCV RNA QNT <1.18 NOT DETECTED Log IU/mL (NOT DETECTED); HCV RNA QUANT RT PCR <15 NOT DETECTED IU/mL (NOT DETECTED)
== END 2018-04-03 08:56 | disposition home or self-care (01) ==
LOC: DI 08:55
PROVIDERS: ATTEND Registered Nurse
DX: O26.849 Uterine size-date discrepancy, unspecified trimester (principal)
CPT/HCPCS: 36415; 76816; 81599; 86695; 86696; 87389; 87491; 87522; 87591; 87797

== ENCOUNTER 2018-04-07 02:40 | Outpatient (CLI) | payer OTHER ==
[2018-04-07 03:39] LABS: BILIRUBIN,URINE NEGATIVE (NEGATIVE); GLUCOSE, URINE (UA) NEGATIVE (NEGATIVE); KETONES,URINE (UA) NEGATIVE (NEGATIVE); LEUKOCYTE ESTERASE, URINE NEGATIVE (NEGATIVE); NITRITE,URINE NEGATIVE (NEGATIVE); OCCULT BLOOD,URINE NEGATIVE (NEGATIVE); PROTEIN,URINE NEGATIVE (NEGATIVE); UROBILINOGEN,URINE 0.2 (NORMAL) E.U./dL (NORMAL)
[2018-04-07 03:42] LABS: CLARITY,URINE CLEAR (CLEAR)
[2018-04-07 03:44] LABS: BASOPHILS % (AUTO) 0.5 %; EOSINOPHILS # (AUTO) 0.1 10^3/uL (0.0-0.7); EOSINOPHILS % (AUTO) 0.6 %; HGB - HEMOGLOBIN 11.5 g/dL (12.0-16.0); LYMPHOCYTES # (AUTO) 3.2 10^3/uL (1.5-3.5); LYMPHOCYTES % (AUTO) 32.9 %; MEAN CORPUSCULAR HEMOGLOBIN 27.3 pg (27.0-31.0); MEAN CORPUSCULAR HGB CONC 32.5 g/dL (32.0-36.0); MEAN CORPUSCULAR VOLUME 84.1 fL (81.0-99.0); MEAN PLATELET VOLUME 8.9 fL (7.9-10.8); MONOCYTES # (AUTO) 0.5 10^3/uL (0.0-1.0); MONOCYTES % (AUTO) 5.2 %; NEUTROPHILS % (AUTO) 60.8 %; PLT - PLATELET COUNT 289 10^3/uL (130-450); RED BLOOD COUNT 4.22 10^6/uL (4.20-5.40); RED CELL DISTRIBUTION WIDTH 13.3 % (12.0-15.0); WHITE BLOOD COUNT 9.8 x10^3/uL (4.8-10.8)
[2018-04-07 03:44] LABS: CREATININE,URINE 62.2 mg/dL; TOTAL PROTEIN,URINE TIMED < 6 mg/dL
[2018-04-07 03:48] LABS: BACTERIA,URINE None Seen /HPF (None Seen); RBC,URINE None Seen /HPF (0-5); SQUAMOUS EPITHELIAL CELL,UR MOD Squamous (<= Few)
[2018-04-07 04:01] LABS: ALBUMIN 3.1 g/dL (3.2-5.5); ALBUMIN/GLOBULIN RATIO 0.8 (1.0-2.2); BILIRUBIN,TOTAL 0.4 mg/dL (0.2-1.0); CALCIUM 9.2 mg/dL (8.5-10.3); CREATININE 0.8 mg/dL (0.4-1.0); TOTAL PROTEIN 6.9 g/dL (6.7-8.2)
[2018-04-07] MEDS ORDERED: ACETAMINOPHEN 325 MG TABLET PO STA (04:18)
[2018-04-07 04:55] VITALS: BP 160/91
[2018-04-08 07:24] LABS: CREATININE,URINE 51.5 mg/dL
== END 2018-04-07 04:45 | disposition home or self-care (01) ==
LOC: WFO 02:40 → FBP 02:41 → WFO 04:45
PROVIDERS: ATTEND Registered Nurse
DX: O13.3 Gestational [pregnancy-induced] hypertension without significant proteinuria, third trimester (principal); Z3A.35 35 weeks gestation of pregnancy
CPT/HCPCS: 36415; 80053; 81001; 82570; 83615; 84156; 84450; 84550; 85025; 85384; 99213; A9270; 87086; 96372

== ENCOUNTER 2018-04-08 06:46 | Outpatient (CLI) | payer OTHER ==
[2018-04-08] MEDS ORDERED: BETAMETHASONE 30 MG/5 ML VIAL IM ONE (06:54)
[2018-04-08 09:04] VITALS: BP 147/85
== END 2018-04-08 08:40 | disposition home or self-care (01) ==
LOC: WFO 06:46 → FBP 06:47 → WFO 08:40
PROVIDERS: ATTEND Registered Nurse
DX: O13.3 Gestational [pregnancy-induced] hypertension without significant proteinuria, third trimester (principal); Z3A.35 35 weeks gestation of pregnancy
CPT/HCPCS: 96372

== ENCOUNTER 2018-04-17 15:08 | Outpatient (CLI) | payer OTHER ==
[2018-04-17 15:26] VITALS: BP 123/75
--- NOTE | 2018-04-19 08:46 | PROVIDER PROGRESS NOTE ---
Subjective - Prog Note Date Prog Note Date: 04/17/18 Prog Note Time: 16:00 - Subjective Subjective: Myriam is a 23-year-old 2 para 0010 woman at 37 weeks 1 day gestation under surveillance for gestational hypertension. She is currently on labetalol. Today is an NST check. Blood pressure 123/75 External heart tracing: Baseline 135, moderate variability, excels meet criteria for reactivity, category 1 strip, no contractions noted Assessment plan reactive NST we will continue close surveillance. Since patient is on labetalol to control pressure may consider induction
== END 2018-04-17 16:00 | disposition home or self-care (01) ==
LOC: FBP 15:08 → WFO 15:08
PROVIDERS: ATTEND Obstetrics & Gynecology
DX: O13.3 Gestational [pregnancy-induced] hypertension without significant proteinuria, third trimester (principal); Z3A.37 37 weeks gestation of pregnancy
CPT/HCPCS: 59025

== ENCOUNTER 2018-04-18 01:22 | Outpatient (CLI) | payer OTHER ==
[2018-04-18 02:07] LABS: BASOPHILS % (AUTO) 0.2 %; EOSINOPHILS # (AUTO) 0.1 10^3/uL (0.0-0.7); EOSINOPHILS % (AUTO) 1.4 %; HGB - HEMOGLOBIN 10.6 g/dL (12.0-16.0); LYMPHOCYTES # (AUTO) 3.8 10^3/uL (1.5-3.5); LYMPHOCYTES % (AUTO) 37.4 %; MEAN CORPUSCULAR HEMOGLOBIN 27.5 pg (27.0-31.0); MEAN CORPUSCULAR HGB CONC 33.1 g/dL (32.0-36.0); MEAN PLATELET VOLUME 8.8 fL (7.9-10.8); MONOCYTES # (AUTO) 0.8 10^3/uL (0.0-1.0); MONOCYTES % (AUTO) 7.4 %; NEUTROPHILS # (AUTO) 5.5 10^3/uL (1.5-6.6); NEUTROPHILS % (AUTO) 53.6 %; PLT - PLATELET COUNT 220 10^3/uL (130-450); RED BLOOD COUNT 3.86 10^6/uL (4.20-5.40); RED CELL DISTRIBUTION WIDTH 13.5 % (12.0-15.0); WHITE BLOOD COUNT 10.2 x10^3/uL (4.8-10.8)
[2018-04-18 02:17] LABS: URIC ACID 7.4 mg/dL (2.6-7.2)
[2018-04-18 02:30] LABS: CREATININE,URINE 59.4 mg/dL; PROTEIN/CREATININE RATIO,URINE 0.1 (<=0.2)
[2018-04-18 02:31] VITALS: BP 128/60
[2018-04-18] MEDS ORDERED: MORPHINE 10 MG/ML VIAL IM ONE (02:48)
[2018-04-18] MEDS ORDERED: PROMETHAZINE 25 MG/1 ML VIAL IM ONE (02:48)
--- NOTE | 2018-04-19 08:31 | PROVIDER PROGRESS NOTE ---
Subjective - Prog Note Date Prog Note Date: 04/18/18 Prog Note Time: 02:00 - Subjective Pt reports feeling: No change Subjective: Myriam Art is a 23-year-old 2 para 0010 woman at 37 weeks and 2 days gestation who is being watched for gestational hypertension. Today she reports a unremitting frontal headache unrelieved by Tylenol or rest. She has reports no edema right upper quadrant pain or visual symptoms. She is currently on labetalol 100 mg twice daily. Blood pressure 129/85 Hemoglobin 10.6 Platelets 220 Uric acid 7.4 AST 24 LDH 143 Protein creatinine ratio 0.1 External monitor tracing: Baseline 135 moderate variability prerequisite accelerations no decelerations no uterine activity; category 1 tracing Assessment plan: * Patient given therapeutic rest morphine 10 mg/Phenergan 25 mg IM injection. * Patient to be evaluated in the office for potential induction. Objective - Lab Results Fish Bones: 04/18/18 01:55
== END 2018-04-18 03:25 | disposition home or self-care (01) ==
LOC: WFO 01:22 → FBP 01:24 → WFO 03:25
PROVIDERS: ATTEND Obstetrics & Gynecology
DX: O13.3 Gestational [pregnancy-induced] hypertension without significant proteinuria, third trimester (principal); Z3A.37 37 weeks gestation of pregnancy
CPT/HCPCS: 36415; 82570; 83615; 84156; 84450; 84550; 85025; 96372; 99213

== ENCOUNTER 2018-04-20 09:52 | Outpatient (CLI) | payer OTHER ==
[2018-04-20 10:05] VITALS: BP 120/76
== END 2018-04-20 10:40 | disposition home or self-care (01) ==
LOC: WFO 09:52 → FBP 10:00 → WFO 10:40
PROVIDERS: ATTEND Nurse Practitioner Obstetrics & Gynecology
DX: O13.3 Gestational [pregnancy-induced] hypertension without significant proteinuria, third trimester (principal); Z3A.37 37 weeks gestation of pregnancy
CPT/HCPCS: 59025

== ENCOUNTER 2018-04-20 20:03 | Outpatient (CLI) | payer OTHER ==
[2018-04-20 20:19] VITALS: BP 114/73
[2018-04-20 20:57] LABS: BASOPHILS % (AUTO) 0.3 %; EOSINOPHILS # (AUTO) 0.1 10^3/uL (0.0-0.7); EOSINOPHILS % (AUTO) 1.3 %; HGB - HEMOGLOBIN 10.8 g/dL (12.0-16.0); LYMPHOCYTES # (AUTO) 3.5 10^3/uL (1.5-3.5); LYMPHOCYTES % (AUTO) 32.2 %; MEAN CORPUSCULAR HEMOGLOBIN 27.4 pg (27.0-31.0); MEAN CORPUSCULAR VOLUME 83.1 fL (81.0-99.0); MEAN PLATELET VOLUME 8.8 fL (7.9-10.8); MONOCYTES # (AUTO) 0.9 10^3/uL (0.0-1.0); MONOCYTES % (AUTO) 8.7 %; NEUTROPHILS # (AUTO) 6.3 10^3/uL (1.5-6.6); NEUTROPHILS % (AUTO) 57.5 %; PLT - PLATELET COUNT 217 10^3/uL (130-450); RED BLOOD COUNT 3.95 10^6/uL (4.20-5.40); RED CELL DISTRIBUTION WIDTH 13.7 % (12.0-15.0); WHITE BLOOD COUNT 10.9 x10^3/uL (4.8-10.8)
[2018-04-20 21:10] LABS: ALBUMIN 2.8 g/dL (3.2-5.5); ALBUMIN/GLOBULIN RATIO 0.9 (1.0-2.2); ALKALINE PHOSPHATASE 140 IU/L (42-121); ALT ALANINE AMINOTRANSFERASE 23 IU/L (10-60); AST ASPARTATE AMINOTRANSFERASE 26 IU/L (10-42); BILIRUBIN,TOTAL < 0.2 mg/dL (0.2-1.0); BUN - BLOOD UREA NITROGEN 11 mg/dL (6-20); CARBON DIOXIDE - CO2 22 mmol/L (21-32); CHLORIDE 108 mmol/L (101-111); CREATININE 0.9 mg/dL (0.4-1.0); GFR - MDRD 79 (>89); GLUCOSE 113 mg/dL (70-100); SODIUM 137 mmol/L (135-145)
[2018-04-20 21:16] LABS: CREATININE,URINE 28.7 mg/dL
[2018-04-20 21:21] LABS: TOTAL PROTEIN,URINE TIMED < 6 mg/dL
== END 2018-04-20 21:40 | disposition home or self-care (01) ==
LOC: WFO 20:03 → FBP 20:06 → WFO 21:40
PROVIDERS: ATTEND Registered Nurse
DX: O99.89 Other specified diseases and conditions complicating pregnancy, childbirth and the puerperium (principal); R10.11 Right upper quadrant pain; O13.3 Gestational [pregnancy-induced] hypertension without significant proteinuria, third trimester; Z3A.37 37 weeks gestation of pregnancy
CPT/HCPCS: 36415; 59025; 80053; 82570; 84156; 85025; 99213

== ENCOUNTER 2018-05-18 14:25 | Outpatient (CLI) | payer OTHER ==
[2018-05-18 15:28] LABS: ALBUMIN 3.9 g/dL (3.2-5.5); ALBUMIN/GLOBULIN RATIO 1.1 (1.0-2.2); BILIRUBIN,TOTAL 0.7 mg/dL (0.2-1.0); CALCIUM 9.3 mg/dL (8.5-10.3); CREATININE 0.8 mg/dL (0.4-1.0); TOTAL PROTEIN 7.3 g/dL (6.7-8.2)
[2018-05-18 15:36] LABS: BASOPHILS % (AUTO) 0.5 %; EOSINOPHILS # (AUTO) 0.1 10^3/uL (0.0-0.7); EOSINOPHILS % (AUTO) 2.1 %; HGB - HEMOGLOBIN 11.6 g/dL (12.0-16.0); LYMPHOCYTES # (AUTO) 2.6 10^3/uL (1.5-3.5); LYMPHOCYTES % (AUTO) 40.7 %; MEAN CORPUSCULAR HEMOGLOBIN 26.9 pg (27.0-31.0); MEAN CORPUSCULAR HGB CONC 32.2 g/dL (32.0-36.0); MEAN CORPUSCULAR VOLUME 83.5 fL (81.0-99.0); MEAN PLATELET VOLUME 7.4 fL (7.9-10.8); MONOCYTES # (AUTO) 0.5 10^3/uL (0.0-1.0); MONOCYTES % (AUTO) 7.6 %; NEUTROPHILS # (AUTO) 3.1 10^3/uL (1.5-6.6); NEUTROPHILS % (AUTO) 49.1 %; PLT - PLATELET COUNT 270 10^3/uL (130-450); RED BLOOD COUNT 4.31 10^6/uL (4.20-5.40); RED CELL DISTRIBUTION WIDTH 16.2 % (12.0-15.0); WHITE BLOOD COUNT 6.4 x10^3/uL (4.8-10.8)
== END 2018-05-18 14:26 | disposition home or self-care (01) ==
LOC: LAB 14:25
PROVIDERS: ATTEND Registered Nurse
DX: I10 Essential (primary) hypertension (principal)
CPT/HCPCS: 36415; 80053; 85025

== ENCOUNTER 2022-08-02 18:31 | Outpatient (CLI) | payer OTHER ==
--- NOTE | 2022-08-03 10:23 | Ultrasound Report ---
PROCEDURE: OB F/U or Repeat INDICATIONS: UTERINE SIZE DATE DISCREPENCY OUTSIDE/PRIOR DATING DATA: Last menstrual period (LMP): 01/16/2022. LMP-based estimated date of delivery (MARSHALL): 10/23/2022. First dating scan (date and location): 08/02/2022, [facility] [place]. Estimated date of delivery (MARSHALL) from first dating scan: 10/23/2022. TECHNIQUE: Real-time scanning was performed of the fetus, with image documentation and biometric measurements. Endovaginal scanning: Not performed COMPARISON: None. FINDINGS: General: A single living intrauterine gestation is present. Presentation: Vertex Placenta: Placental position is posterior, without previa. Amniotic fluid index: 20.2 cm, 86.7 for gestational age. heart rate: 169 beats per minute. Maternal cervical canal: 4.25 cm long; normal length is 2.5 cm or more. biometrics: Biparietal diameter: 7.26 cm, 29 weeks, 1 day Head circumference: 26.9 cm, 29 weeks, 3 days Abdominal circumference: 24.4 cm, 28 weeks, 5 days Femur length: 5.73 cm, 30 weeks, 0 days Estimated gestational age from initial scan: 28 weeks, 2 days Composite gestational age from present scan: 29 weeks, 2 days Estimated weight and percentile: 1358.4 g, 73.7% Measurement variability in biometric dating: +/- 10 days from 12-20 weeks gestation, +/- 2 weeks from 20-30 weeks gestation, +/- 3 weeks at 30 weeks gestation or more. Other: Not applicable. IMPRESSION: 1. Single live intrauterine gestation with a composite gestational age of 29 weeks, 2 days which is c oncordant with dates by initial scan. Reviewed by: Kimberli Logan MD on 08/03/2022 10:22 AM PDT Approved by: Kimberli Logan MD on 08/03/2022 10:22 AM PDT Station ID: [id number]
== END 2022-08-02 18:32 | disposition home or self-care (01) ==
LOC: DI 18:31
PROVIDERS: ATTEND Nurse Practitioner Obstetrics & Gynecology
DX: O26.843 Uterine size-date discrepancy, third trimester (principal); Z3A.29 29 weeks gestation of pregnancy

== ENCOUNTER 2022-08-12 08:59 | Outpatient (CLI) | payer OTHER ==
[2022-08-12 10:32] LABS: GTT GLUCOSE,FASTING 86 mg/dL (70-100)
== END 2022-08-12 09:00 | disposition home or self-care (01) ==
LOC: LAB 08:59
PROVIDERS: ATTEND Nurse Practitioner Obstetrics & Gynecology
DX: O99.810 Abnormal glucose complicating pregnancy (principal)
CPT/HCPCS: 36415; 82951; 82952

== ENCOUNTER 2022-09-23 17:07 | Outpatient (CLI) | payer OTHER ==
[2022-09-23 17:23] LABS: HCT - HEMATOCRIT 36.3 % (37.0-47.0); HGB - HEMOGLOBIN 12.1 g/dL (12.0-16.0); MEAN CORPUSCULAR HEMOGLOBIN 27.4 pg (27.0-31.0); MEAN CORPUSCULAR HGB CONC 33.3 g/dL (32.0-36.0); MEAN CORPUSCULAR VOLUME 82.1 fL (81.0-99.0); MEAN PLATELET VOLUME 9.5 fL (7.9-10.8); RED BLOOD COUNT 4.42 10^6/uL (4.20-5.40); RED CELL DISTRIBUTION WIDTH 14.8 % (12.0-15.0)
[2022-09-23 17:33] LABS: ALBUMIN/GLOBULIN RATIO 0.8 (1.0-2.2); BILIRUBIN,TOTAL 0.5 mg/dL (0.2-1.0); CALCIUM 8.9 mg/dL (8.5-10.3); CREATININE 0.7 mg/dL (0.4-1.0); POTASSIUM 3.5 mmol/L (3.5-5.0); TOTAL PROTEIN 6.9 g/dL (6.7-8.2)
== END 2022-09-23 17:08 | disposition home or self-care (01) ==
LOC: LAB 17:07
PROVIDERS: ATTEND Nurse Practitioner Obstetrics & Gynecology
DX: O99.013 Anemia complicating pregnancy, third trimester (principal); Z87.59 Personal history of other complications of pregnancy, childbirth and the puerperium
CPT/HCPCS: 36415; 80053; 85027

== ENCOUNTER 2023-01-14 13:37 | Emergency (ER) | payer OTHER ==
[2023-01-14] MEDS ORDERED: diazePAM INJ 5 MG/ML SYRINGE IM STA (13:54)
[2023-01-14] MEDS ORDERED: KETOROLAC 30 MG/ML VIAL IM STA (13:54)
--- NOTE | 2023-01-14 13:55 | ED Physician Documentation ---
PD HPI BACK PAIN - Stated complaint Stated Complaint: Back pain - Chief complaint Chief Complaint: Back Pain - History obtained from History obtained from: Patient - Additional information Additional information: This is a very nice 27-year-old female who presents with lower back pain radiating into the left leg. The patient states she has a history of lumbar disc disease And has the back spasms from time to time. She noticed some mild spasms yesterday however today when she went down to pick up driver her baby she had a sudden onset of lower lumbar back spasms radiating into her left leg. She could not get up off the floor due to the discomfort in her low back. It worsened with any type of movement and no type of position would alleviate her discomfort. She did not have a chance to try any medications or other treatment prior to arrival. She did have pain radiating down the left leg, no saddle anesthesia or bowel or bladder changes. She has not had a fever or chills. She denies any trauma to the area the only thing she did was bent over to pick up driver her daughter. Review of Systems Constitutional: reports: Reviewed and negative Cardiac: reports: Reviewed and negative Respiratory: reports: Reviewed and negative GI: reports: Reviewed and negative : reports: Reviewed and negative Musculoskeletal: reports: Back pain Neurologic: reports: Reviewed and negative PD PAST MEDICAL HISTORY - Past Medical History Past Medical History: Yes Cardiovascular: Hypertension (gestational) Respiratory: None Endocrine/Autoimmune: None GI: GERD PROFESSOR OF CHEMISTRY: None Musculoskeletal: Chronic back pain - Past Surgical History Past Surgical History: Yes - Present Medications Home Medications: Ambulatory Orders Medication Instructions Recorded Confirmed Vitamin [Trinatal Rx 1] 1 each PO DAILY 09/06/17 09/06/17 Baclofen [Lioresal] 10 mg PO QID PRN #30 tablet 01/14/23 Ibuprofen [Motrin] 600 mg PO Q6H PRN #30 tab 01/14/23 Sertraline [Zoloft] 01/14/23 - Allergies Allergies/Adverse Reactions: Allergies Allergy/AdvReac Type Severity Reaction Status Date / Time Sulfa (Sulfonamide Allergy Hives Verified 01/14/23 13:44 Antibiotics) - Social History Does the pt smoke?: No Smoking Status: Never smoker Does the pt drink ETOH?: No Does the pt have substance abuse?: No - Immunizations Immunizations are current?: Yes - POLST Patient has POLST: No PD ED PE NORMAL - Vitals Vital signs reviewed: Yes - General General: Alert and oriented X 3, No acute distress (Appears uncomfortable but nontoxic), Well developed/nourished - HEENT HEENT: Atraumatic, Moist mucous membranes - Cardiac Cardiac: RRR, No murmur - Respiratory Respiratory: No respiratory distress, Clear bilaterally - Abdomen Abdomen: Normal bowel sounds, Soft, Non tender, Non distended - Back Back: No CVA TTP, No spinal TTP, Other (No midline tenderness to palpation but there is tenderness just to the left of the lower lumbar spine into the sacral area and the left sciatic nerve.) - Derm Derm: Normal color, Warm and dry, No rash - Extremities Extremities: No deformity, No tenderness to palpate, Other (Patient has difficulty bearing weight on the left leg due to weakness and discomfort in her back) Results - Vitals Vitals: Vital Signs - 24 hr 01/14/23 01/14/23 13:42 16:33 Temperature 36.3 C L Heart Rate 71 102 H Respiratory 18 16 Rate Blood Pressure 130/68 141/82 H O2 Saturation 99 96 Oxygen O2 Source Room air PD Medical Decision Making - ED course Complexity details: reviewed results, considered differential, d/w patient ED course: This is a 27-year-old female who presented with left lower back pain rating into the left leg as described in HPI. She appears uncomfortable on initial physical exam but nontoxic with stable vital signs. She does have reproducible lower back pain paravertebrally but no signs of cauda equina syndrome and she has no respecters for epidural abscess or osteomyelitis. Patient is breast- feeding but was not quite a bit of discomfort therefore you discussed different options for pain control and was admitted patient was given 5 mg of IM diazepam as well as 30 mg of IM Toradol with some improvement in her symptoms though she still cannot bear weight on the left side due to triggering spasms in her lower back and therefore we did proceed with 1 mg of IM Dilaudid with improved pain relief. I discussed with patient that she is likely to be in discomfort for the next several days if she had no some improvement with time, she should continue to avoid lifting twisting or bending. She can take ibuprofen and Tylenol as needed for pain, she declined any narcotic pain medication but we will discharge with baclofen to use as needed for muscle spasms. She was cautioned on the potential side effects of this medication and use sparingly especially during breast-feeding. Patient should follow-up with her primary doctor within the next 1 to 2 weeks, return precautions reviewed. Departure - Departure Disposition: 01 Home, Self Care Clinical Impression: Spasm of back muscles Condition: Good Instructions: ED Low Back Pain Injury Prescriptions: Baclofen [Lioresal] 10 mg PO QID PRN #30 tablet PRN Reason: back spasms Ibuprofen [Motrin] 600 mg PO Q6H PRN #30 tab PRN Reason: Pain Comments: Your back has started to spasm. This is usually due to weakness in the lower back muscles or tears in the muscles which then induce spasms. You also have underlying lumbar spine issues. The spasms usually subside in the next week or so but can take longer. Please avoid any lifting twisting or bending until symptoms improve. You can take ibuprofen and Tylenol for pain management and I have given you a course of baclofen which is a muscle relaxer that can cause fatigue. It does enter into the breastmilk however at a fairly low dose and most studies showed minimal effect on the to if you notice any lethargy in your child, please stop using the baclofen. Please follow-up with your primary doctor within the next week or so, return if worsening symptoms. Discharge Date/Time: 01/14/23 16:34
[2023-01-14] MEDS ORDERED: HYDROmorphone 1 MG/ML CARPUJECT IM STA (15:55)
[2023-01-14 16:36] VITALS: BP 141/82; O2SAT 96
== END 2023-01-14 16:34 | disposition home or self-care (01) ==
LOC: EDUNIT# → ED 13:37
DX: M62.830 Muscle spasm of back (principal); Z79.899 Other long term (current) drug therapy
CPT/HCPCS: 96372; 99283; J1170